=== PATIENT | female | born 1965 | race Caucasian/White ===

== ENCOUNTER 2017-11-11 18:19 | Emergency (ER) | payer OTHER ==
[~2017-11-11] VITALS: Ht 157.5 cm; Wt 45.4 kg
[2017-11-11] MEDS ORDERED: TRAMADOL 50 MG50 MG PO (18:45)
[2017-11-11] MEDS ORDERED: NAPROSYN500 MG PO (18:45)
[2017-11-11 18:58] VITALS: BP 156/77
== END 2017-11-11 18:58 | disposition home or self-care (01) ==
LOC: M.ERS 18:19
DX: M25.562 Pain in left knee (principal); Z90.710 Acquired absence of both cervix and uterus